=== PATIENT | male | born 1950 | race Caucasian/White ===

== ENCOUNTER → 2017-05-12 | Outpatient (CLI) | payer OTHER, MEDICARE ==
[~2017-05-12] MED LIST: AMLO-114 PO; HYDR25TA4 PO; LPR100 PO; MELO7.5T5 PO; MULT-506 PO
== END | disposition home or self-care (01) ==
LOC: C.CPL 12:11
PROVIDERS: ATTEND Orthopaedic Surgery
DX: Z01.810 Encounter for preprocedural cardiovascular examination (principal)

== ENCOUNTER 2017-10-31 10:24 | Inpatient (IN) | payer OTHER, MEDICARE ==
[2017-10-08 13:08] VITALS: BMI 39.0
--- NOTE | 2017-10-08 13:47 | PAT Medication Instructions ---
Service Date Oct 08, 2017. Current Home Medication List Amlodipine (Norvasc), 10 MG PO QAM Hydrochlorothiazide (Hctz), 25 MG PO QAM Meloxicam (Mobic), 15 MG PO QAM Metoprolol Tartrate (Metoprolol Tartrate), 100 MG PO BID Multivitamin (Multivitamin), 1 TAB PO QAM Medication Instructions For Your Scheduled Surgery - Hold the following medications 1 week prior to surgery per your surgeon's instructions: -Meloxicam (Mobic), 15 MG PO QAM - Hold the following medications the morning of surgery: Multivitamin (Multivitamin), 1 TAB PO QAM Hydrochlorothiazide (Hctz), 25 MG PO QAM - Take the following medications the morning of surgery with a sip of water: Metoprolol Tartrate (Metoprolol Tartrate), 100 MG PO BID Amlodipine (Norvasc), 10 MG PO QAM - Take the following medications as scheduled the night before surgery: Metoprolol Tartrate (Metoprolol Tartrate), 100 MG PO BID If you have any questions please call us at [phone] or [phone] or [phone]
--- NOTE | 2017-10-08 14:52 | DIAGNOSTIC IMAGING REPORT ---
CHEST 2 VIEWS ROUTINE CLINICAL HISTORY: Preoperative evaluation for COMPARISON STUDY: No previous studies for comparison. FINDINGS: Lung volumes are at the lower limits of normal. There is no pneumothorax or pleural effusion. There is no consolidation. Mild to moderate cardiomegaly is noted. IMPRESSION: 1. No acute cardiopulmonary findings. 2. Mild to moderate cardiomegaly. Electronically signed by: Michael Crandall M.D. 10/08/2017 2:51 PM Dictated Date/Time: 10/08/2017 2:50 PM
[2017-10-08 15:33] LABS: BASO % 0.6 %; BASO ABS # 0.05 K/uL (0-0.2); COMPLETE YES; EOS % 1.9 %; HEMATOCRIT 44.4 % (42-52); IG% 0.2 %; LYMPH ABS # 3.06 K/uL (1.2-3.4); MEAN CELL VOLUME 89.3 fL (80-100); MEAN CORPUSCULAR HEMOGLOBIN 31.8 pg (25-34); MEAN CORPUSCULAR HGB CONC 35.6 g/dl (32-36); MEAN PLATELET VOLUME 10.7 fL (7.4-10.4); MONO % 8.2 %; NEUT % 51.1 %; PLATELET COUNT 226 K/uL (130-400); RED BLOOD COUNT 4.97 M/uL (4.7-6.1); WHITE BLOOD COUNT 8.05 K/uL (4.8-10.8)
[2017-10-08 15:41] LABS: BUN/CREATININE RATIO 16.8 (10-20); CALCIUM 8.9 mg/dl (8.5-10.1); CREATININE 1.09 mg/dl (0.60-1.40); POTASSIUM 3.7 mmol/L (3.5-5.1)
[2017-10-08 15:43] LABS: URINE APPEARANCE CLEAR (CLEAR); URINE BILIRUBIN NEG (NEG); URINE COLOR YELLOW; URINE NITRITE NEG (NEG); URINE SPECIFIC GRAVITY 1.022 (1.000-1.030); UROBILINOGEN NEG (NEG); ZZUR CULT IF INDIC CLEAN CATCH NO
[2017-10-08 15:45] LABS: PROTHROMBIN TIME (PATIENT) 10.4 SECONDS (9.0-12.0)
[2017-10-08 15:56] LABS: MANUAL MICROSCOPIC REQUIRED? NO; REVIEW REQ? NO
[2017-10-08 17:21] LABS: ESTIMATED AVERAGE GLUCOSE 103 mg/dl; HA1C FLAG Normal (Normal)
--- NOTE | 2017-10-27 10:57 | History and Physical ---
History & Physical Date Oct 27, 2017. Chief Complaint Right knee pain History of Present Illness The patient is a 67 year old male with complaints of right knee pain. Patient previous had a knee arthroscopy with a PMM. He states since after the surgery he has had increased pain along the medial joint line. He has tried conservative therapy with little relief. He would like to proceed with a right knee unicompartment verse a right TKA. Past Medical/Surgical History PMHx: hypertension, sleep apnea, osteoarthritis, history of kidney cancer PSHx: 2 tumor removal from kidney, lower back surgery, neck surgery, Right carpal tunnel and cubital tunnel. Additional History Hepatic Disease: No Endocrine Disorder: No Kidney Disease: Yes Hypertension: Yes Heart Disease: No Bleeding Tendencies: No Infectious Diseases: No Allergies Coded Allergies: Penicillins (Verified Allergy, Unknown, RASH, 10/08/17) Home Medications Scheduled Amlodipine (Norvasc), 10 MG PO QAM Hydrochlorothiazide (Hctz), 25 MG PO QAM Meloxicam (Mobic), 15 MG PO QAM Metoprolol Tartrate (Metoprolol Tartrate), 100 MG PO BID Multivitamin (Multivitamin), 1 TAB PO QAM Physical Examination Skin: warm/dry, no rash Eyes: normal inspection, EOMI ENT: normal ENT inspection Head: normocephalic, atraumatic Neck: supple, no adenopathy Respiratory/Chest: lungs clear, normal breath sounds Cardiovascular: regular rate, rhythm, no murmur Abdomen / GI: normal bowel sounds, non tender Extremities: normal inspection, + pertinent finding (Medial joint line tenderness, decreased strength and ROM) Neurologic/Psych: no motor/sensory deficits, alert, oriented x 3 Diagnosis Primary osteoarthritis of the right knee Plan of Treatment Patient is scheduled for a right knee unicompartment verses right TKA. Patient has failed conservative treatment. He would like to proceed with scheduled surgery. Risks and benefits to surgery were discussed with the patient. He understands the risks and wishes to proceed. All questions were answered to his satisfaction. ASA 81mg BID will be for DVT Prophylaxis and he would like to go home with home health.
[~2017-10-31] VITALS: Ht 177.8 cm; Wt 122.7 kg
[2017-10-31] VITALS (8 sets, daily range): BP systolic 130–175; BP diastolic 66–83; PULSE 76–89; TEMP 36.4–36.9; O2SAT 93–98; Ht 177.8 cm; Wt 122.7 kg
[2017-10-31] MEDS: TRANEXAMIC ACID INJ 1,000 MG in SYRINGE 0 ML IV SCH ×2 (06:30→12:22)
[~2017-10-31 10:24] MED LIST changes: +ACETAMINOPHEN 500 MG TAB PO SCH; +ATROPINE SULFATE 0.1 MG/ML 5ML SYR IV PRN; +BUPIVACAINE 0.5 % 5 MG/1 ML PF 10ML VIAL ONE; +CLINDAMYCIN 600 MG/54 ML D5W 54 ML IV SCH; +CeleBREX 200 MG CAP PO SCH; +DEXAMETHASONE 4 MG TAB PO SCH; +EpHEDrine SULFATE INJ 50 MG/ML AMP IV PRN; +FAMOTIDINE 20 MG TAB PO SCH; +GABAPENTIN 300 MG CAP PO SCH; +HYDROmorphone INJ 2 MG/ML SYR/VIAL IV PRN; +LACTATED RINGER'S 1000ML 1,000 ML IV SCH; +LACTATED RINGER'S 1000ML 500 ML IV ONE; +LACTATED RINGER'S 1000ML IV SCH; +METOCLOPRAMIDE HCL 10 MG TAB PO SCH; +ONDANSETRON INJ 2 MG/ML 2 ML VIAL IV PRN; +OXYCODONE HCL 10 MG TABCR (OXYCONTIN) PO SCH; +PHENYLEPHRINE 100MCG/ML 5ML SYR IV PRN; +ROPIVACAINE 0.5% 5 MG/ML 30 ML VIAL ONE; +ROPIVACAINE 5MG/ML 30 ML 150 MG, BUPIVACAINE 0.5% MPF INJ 30 ML, EpINEphrine HCL INJ 0.... INFIL SCH
--- NOTE | 2017-10-31 11:13 | History & Physical Bridge Note ---
H&P Re-Evaluation Bridge Note: I have examined the patient, reviewed the History & Physical and in the interval since the performance of the History & Physical I have noted the following changes of clinical significance: No changes noted
[2017-10-31] MEDS ORDERED: MIDAZOLAM HCL 1 MG/ML 2ML VIAL ONE ×2 (11:35)
[2017-10-31] MEDS ORDERED: POVIDONE-IODINE OP SOLN 30 ML BTL ONE (12:01)
[2017-10-31] MEDS ORDERED: BACITRACIN 50000 UNIT VIAL ONE (12:01)
[2017-10-31] MEDS ORDERED: ORTHO JOINT ANESTHETIC ONE (12:01)
[2017-10-31] MEDS ORDERED: FENTANYL CITRATE INJ 50 MCG/1 ML 2 ML VIAL ONE (12:52)
[2017-10-31] MEDS ORDERED: PROPOFOL IV EMULSION 10 MG/ML 20 ML VIAL IV ONE ×5 (13:13→15:22)
[2017-10-31] MEDS ORDERED: EpHEDrine SULFATE 50MG/5ML SYR ONE (13:13)
--- NOTE | 2017-10-31 15:33 | [facility] Operative Report ---
Operative Report Operative Date Oct 31, 2017. Pre-Operative Diagnosis Primary osteoarthritis of the right knee of the medial compartment Post-Operative Diagnosis same as pre-operative Procedure(s) Performed Right unicompartmental knee arthroplasty Surgeon Dr. Guru Kennedy Silo Operator Surgeon(s) LEONARDO Gardner Estimated Blood Loss 20 Findings Complete chondral loss the weightbearing portion of the medial femoral condyle, there was 3 change in the lateral compartment, mild softening to the patella and trochlear cartilage Specimens Permanent Specimen A: Right knee bone and tissue Drains none Anesthesia spinal Complication(s) None Disposition Recovery Room / PACU Indications 67-year-old male with relatively rapid progression of medial compartment arthritis. He previously underwent a knee arthroscopy with partial medial meniscectomy. Postoperatively he had progressive joint space narrowing of medial side. At the time of arthroscopy the patellofemoral compartment had mild degenerative changes and the lateral compartment had no degenerative changes. He still had appropriate laxity to the MCL and could be corrected to neutral alignment. Failing conservative measures including cortisone injection viscoelastic injection and physical therapy she wishes to proceed with a unicompartmental knee arthroplasty versus a total knee arthroplasty. Description of Procedure Risks benefits and alternatives of surgery including but not limited to infection, DVT, pain, stiffness, need for surgery, damage to blood vessels, damage to nerves or risks of anesthesia were discussed with the patient and they wished to proceed. The patient was identified and the laterality was confirmed and marked. They received a preoperative antibiotic as well as a spinal anesthetic and an abductor canal block. A well-padded tourniquet was applied and then the limb was prepped and draped in standard manner with ChloraPrep. The limb was exsanguinated and the tourniquet was inflated. I made an anterior incision slightly medial to the midline. I sharply incised the skin then utilized Bovie electrocautery to achieve hemostasis. I made a medial parapatellar arthrotomy immobilized the patella laterally. I then excised the anterior horns of the medial meniscus as well as a portion of infrapatellar fat pad. I then inspected the patellofemoral joint. There was only mild degenerative change in the patellofemoral joint. I then inspected the lateral compartment. There was no degenerative change in the lateral compartment. I then pinned into place a patient-matched distal tibial cutting guide and made my tibial resection centering the lateral cut off of the border of the anterior cruciate ligament. I needed to take a little bit extra tibia after confirming tension with the 8 mm tension block. I used a 2 mm recut guide for this. I then pinned into place a patient-matched femoral cutting guide. The femoral cut was a little shallow as measured by the 8 mm sizing block site pinned into place the 2 mm recut guide and took an additional of 2 mm femur. I then pinned into place the 2 in 1 femoral cutting guide. I made my posterior and chamfer cuts. I then pinned into place the tibial trial. I then drilled for the posts. I then sequentially trialed to size the polyethylene until there was good soft tissue balancing and range of motion. All the trial components were removed. The deep tissues were anesthetized with an ortho mix solution. Then with Simplex HV with gentamicin cement, I cemented my definitive components. Definitive components, [employer] ZUK: Femur E Tibia 4 Poly 9 A betadine soak was performed. The arthrotomy was closed with interrupted #1 Vicryl suture subcutaneous tissue was closed with interrupted 2-0 Vicryl suture. The skin was closed with with Prineo maty. A Silverlon was placed. Sterile dressings were applied. All needle and sponge counts were correct at the end of the procedure patient was transferred to the PACU in stable condition without apparent complication. The PA-C was necessary for assistance with procedure for assistance in positioning, prepping, draping, retraction and closure. I attest to the content of the Intraoperative Record and any orders documented therein. Any exceptions are noted below.
[2017-10-31] MEDS ORDERED: PANTOprazole SOD 40 MG TAB PO PRN (16:00)
[2017-10-31] MEDS ORDERED: MAGNESIUM HYDROXIDE SUSP 30 ML UDC PO PRN (16:00)
[2017-10-31] MEDS ORDERED: ALUMINUM/MAGNESIUM/SIMETH (MAALOX MAX) 30 ML UDC PO PRN (16:00)
[2017-10-31] MEDS ORDERED: ONDANSETRON INJ 2 MG/ML 2 ML VIAL IV PRN (16:00)
[2017-10-31] MEDS ORDERED: MoRPHine SULFATE 2 MG/ML CARP IV PRN (16:00)
[2017-10-31] MEDS ORDERED: BISACODYL 10 MG SUPP PR PRN (16:00)
[2017-10-31] MEDS ORDERED: SOD PHOSPHATE/SOD BIPHOSPHATE ENEMA 132 ML BTL PR PRN (16:00)
--- NOTE | 2017-10-31 16:08 | Anesthesiology Progress Note ---
Anesthesia Post Op Note Date & Time Oct 31, 2017 at 16:08 Vital Signs Pain Intensity: 0 Vital Signs Past 12 Hours Date Time Temp Pulse Resp B/P (MAP) Pulse Ox O2 Delivery O2 Flow Rate FiO2 10/31/17 16:00 87 16 123/77 97 Oxymask 5 10/31/17 15:52 36.2 86 16 117/83 98 Oxymask 10 10/31/17 11:07 36.9 82 18 175/81 98 Room Air Notes Mental Status: alert / awake / arousable, participated in evaluation Pt Amnestic to Procedure: Yes Nausea / Vomiting: adequately controlled Pain: adequately controlled Airway Patency, RR, SpO2: stable & adequate BP & HR: stable & adequate Hydration State: stable & adequate Neuraxial Anesthesia: was administered, sensory block is resolving Anesthetic Complications: no major complications apparent
--- NOTE | 2017-10-31 16:09 | DIAGNOSTIC IMAGING REPORT ---
R KNEE 1 OR 2 VIEWS ROUTINE HISTORY: 67 years-old Male AP/LATERAL IN PACU RIGHT KNEE status post right knee hemiarthroplasty COMPARISON: None available TECHNIQUE: Portable AP lateral views of the right knee FINDINGS: Postoperative changes are noted compatible with recent medial compartment right knee hemiarthroplasty. Skin maty are seen along the volar skin surface with expected postsurgical swelling and deep tissue air about the knee. Moderate patellofemoral osteoarthritis without significant joint space narrowing within the lateral compartment. No postsurgical complication identified. IMPRESSION: Status post medial compartment right knee hemiarthroplasty without postprocedural complication identified. The above report was generated using voice recognition software. It may contain grammatical, syntax or spelling errors. Electronically signed by: Yrn Marin M.D. 10/31/2017 4:08 PM Dictated Date/Time: 10/31/2017 4:06 PM
[2017-10-31] MEDS: D5W AND 1/2NSS + 20MEQ KCL 1,000 ML IV SCH (17:46)
[2017-10-31] MEDS: ACETAMINOPHEN 500 MG TAB PO SCH ×2 (17:47→23:06)
[2017-10-31] MEDS: FERROUS GLUCONATE 324 MG TAB PO SCH (17:58)
[2017-10-31] MEDS: OXYCODONE HCL IR 5 MG TAB (IMMEDIATE RELEASE) PO PRN (18:18)
[2017-10-31] MEDS: SENNA 8.6 MG TAB PO SCH (21:06)
[2017-10-31] MEDS: ASPIRIN 81 MG ECTAB PO SCH (21:06)
[2017-10-31] MEDS: CeleBREX 200 MG CAP PO SCH (21:06)
[2017-10-31] MEDS: DOCUSATE SODIUM 100 MG CAP PO SCH (21:06)
[2017-10-31] MEDS: CLINDAMYCIN IV 600 MG in DEXTROSE 5% 50ML 50 ML IV SCH (21:06)
[2017-10-31] MEDS: METOPROLOL TARTRATE 100 MG TAB PO SCH (21:07)
[2017-11-01] MEDS: ZOLPIDEM TARTRATE 5 MG TAB PO PRN ×2 (01:31→21:31)
[2017-11-01 02:55] VITALS: BP 141/73; PULSE 79; TEMP 36.5; O2SAT 98
[2017-11-01] MEDS: D5W AND 1/2NSS + 20MEQ KCL 1,000 ML IV SCH ×2 (02:59→13:00)
[2017-11-01] MEDS: ACETAMINOPHEN 500 MG TAB PO SCH ×3 (05:53→21:33)
[2017-11-01] MEDS: CLINDAMYCIN IV 600 MG in DEXTROSE 5% 50ML 50 ML IV SCH (05:53)
[2017-11-01 06:05] LABS: HEMATOCRIT 39.9 % (42-52); MEAN CELL VOLUME 88.3 fL (80-100); MEAN CORPUSCULAR HEMOGLOBIN 31.2 pg (25-34); MEAN CORPUSCULAR HGB CONC 35.3 g/dl (32-36); MEAN PLATELET VOLUME 10.1 fL (7.4-10.4); PLATELET COUNT 184 K/uL (130-400); RED BLOOD COUNT 4.52 M/uL (4.7-6.1); WHITE BLOOD COUNT 15.03 K/uL (4.8-10.8)
[2017-11-01 06:37] LABS: BUN/CREATININE RATIO 17.2 (10-20); CREATININE 1.09 mg/dl (0.60-1.40); POTASSIUM 3.7 mmol/L (3.5-5.1)
--- NOTE | 2017-11-01 07:23 | Orthopedic Progress Note ---
Orthopedic Progress Note Date of Service Nov 01, 2017. Subjective Post OP Day: 1 Reports: feeling well, pain controlled w PO medications, Denies: complaints, chest pain, SOB, nausea / vomiting, light headedness, calf pain Objective calves soft nontender, N/V intact, capillary refill less than 2 sec., dressing C /D/I, A&O x3, toes mobile Date Time Temp Pulse Resp B/P (MAP) Pulse Ox O2 Delivery O2 Flow Rate FiO2 11/01/17 02:55 36.5 79 16 141/73 (95) 98 Room Air 10/31/17 23:20 Room Air 10/31/17 23:15 36.6 76 18 141/68 (92) 97 Room Air 10/31/17 21:00 89 153/66 (95) 10/31/17 19:24 36.5 82 16 138/76 (96) 93 Room Air 10/31/17 18:19 36.4 88 17 157/80 (105) 95 Room Air 10/31/17 17:23 36.6 84 17 158/76 (103) 96 Nasal Cannula 2.0 10/31/17 16:51 36.9 87 17 139/83 (101) 96 Nasal Cannula 2.0 10/31/17 16:20 36.8 85 16 130/73 (92) 93 Nasal Cannula 2.0 10/31/17 16:20 93 Nasal Cannula 2.0 10/31/17 16:20 Nasal Cannula 2.0 10/31/17 16:10 36.5 86 16 127/76 96 Nasal Cannula 2 10/31/17 16:00 87 16 123/77 97 Oxymask 5 10/31/17 15:52 36.2 86 16 117/83 98 Oxymask 10 10/31/17 11:07 36.9 82 18 175/81 98 Room Air Laboratory Results 24 Hours: Test 11/01/17 05:37 Hematocrit 39.9 % Hemoglobin 14.1 g/dL Prothromb Time International Ratio 1.0 Prothrombin Time 11.0 SECONDS Assessment & Plan Assessment: POD#1 Right Zuk unicompartment TKA Plan: Medical Management DVT - ASA PT/OT Discharge - Home with Home Health Inhouse Planning Pain Management: Celebrex, PO Tylenol, Oxy IR DVT Prophylaxis: TEDs, SCDs, ASA Discharge Planning Discharge Planning: home with home health Pain Management: Celebrex, PO Tylenol, Oxy IR DVT Prophylaxis: TEDs, ASA Therapy: Physical Therapy
[2017-11-01 07:36] VITALS: BP 128/75; PULSE 71; TEMP 36.5; O2SAT 95
[2017-11-01] MEDS: OXYCODONE HCL IR 5 MG TAB (IMMEDIATE RELEASE) PO PRN ×2 (08:40→16:39)
[2017-11-01] MEDS: FERROUS GLUCONATE 324 MG TAB PO SCH ×3 (08:41→18:05)
[2017-11-01] MEDS: MULTIVITAMIN TAB PO SCH (08:41)
[2017-11-01] MEDS: DOCUSATE SODIUM 100 MG CAP PO SCH ×2 (08:41→21:32)
[2017-11-01] MEDS: CeleBREX 200 MG CAP PO SCH ×2 (08:42→21:32)
[2017-11-01] MEDS: ASPIRIN 81 MG ECTAB PO SCH ×2 (08:43→21:32)
[2017-11-01] MEDS: METOPROLOL TARTRATE 100 MG TAB PO SCH ×2 (08:44→21:31)
[2017-11-01] MEDS: HYDROCHLOROTHIAZIDE 25 MG TAB PO SCH (08:44)
[2017-11-01] MEDS: AMLODIPINE BESYLATE 5 MG TAB PO SCH (08:45)
[2017-11-01] MEDS ORDERED: MULTIVITAMIN TAB PO SCH (09:00)
[2017-11-01 12:00] VITALS: BP 125/72; PULSE 72; TEMP 36.4; O2SAT 98
[2017-11-01 15:00] VITALS: BP 146/74; PULSE 65; TEMP 36.4; O2SAT 97
--- NOTE | 2017-11-01 20:32 | Discharge Instructions ---
Discharge Instructions Date of Service Nov 01, 2017. Admission Reason for Admission: Right Knee Osteoarthritis Discharge Discharge Diagnosis / Problem: S/P RIght knee Zuk uni-compartment partial total knee Discharge Goals Goal(s): Decrease discomfort, Improve function Activity Recommendations Activity Limitations: per Instructions/Follow-up section . Instructions / Follow-Up Instructions / Follow-Up ACTIVITY RECOMMENDATIONS: SELF CARE INSTRUCTIONS AFTER UNI-COMPARTMENT PARTIAL TOTAL KNEE REPLACEMENT A. You may need to continue a physical therapy program after discharge from the hospital. There are several options available to you. Your doctor will assist you in selecting the best one for you. 1. An out-patient facility 2 to 3 times a week for therapy or home therapy. 2. Continue working on all exercises taught to you in the hospital. Your goals should be to increase bending of your knee to 90 degrees and beyond and to fully straighten your knee. B. You may progress at your own pace from walking with a walker or crutches to a cane; then to no assistive devices. C. Make walking a part of your daily routine. Be up as much as comfortable with rest periods throughout the day. Rest with leg elevation is very important. Use the ice wrap frequently for the first 3-4 weeks. D. There are no restrictions on activities. You may ride in a car, shop, participate in bottom finisher and all social activities. E. Wear the long elastic stockings (RAQUEL hose) 20 hours a day for 2 weeks after surgery. They can be removed several times a day for laundering and for a bath. F. You may shower, no tub baths until cleared by your doctor. SPECIAL CARE INSTRUCTIONS: VERY IMPORTANT TO READ AND REVIEW A. There are a few signs you need to watch for after you are home. Call [facility] [place] if you notice any of the followin. Increased severe knee pain. Some pain is expected especially when you exercise. 2. Increased swelling in your leg or knee; pain or swelling of the calf muscle in either lower leg. 3. Any fluid drainage from the incision. 4. Shortness of breath or chest pain. B. Please call [facility] at if you have any concerns or questions about your operation or recovery. The doctor or his nurse will return your call promptly. C. You must take antibiotics before dental work, bladder, bowel or other surgery. Your doctor will provide you with a permanent care to carry describing this precaution. IMPORTANT: * REMEMBER TO TAKE ASPIRIN, 81 MG, TWICE DAILY FOR 4 WEEKS UNLESS OTHERWISE DIRECTED. THIS IS YOUR BLOOD THINNER. * CALL IF INCREASED PAIN, REDNESS, DRAINAGE OR FEVER GREATER THAT 101. * WEAR RAQUEL HOSE 20 HOURS PER DAY FOR 2 WEEKS. * YOU MAY HAVE A LARGE BAND-AID LIKE DRESSING (SILVERON). THIS WILL REMAIN ON YOUR INCISION FOR 7 DAYS, THEN CAN BE REMOVED. IF INCISION IS LEAKING THROUGH DRESSING, CALL THE OFFICE . FOLLOW UP VISIT: If appointment is not already scheduled: Please call [facility] [place] to make a follow-up appointment with Dr. Kennedy or his PA for 2 weeks after your surgery at . Current Hospital Diet Patient's current hospital diet: Regular Diet Discharge Diet Recommended Diet: Regular Diet Procedures Procedures Performed: Right unicompartmental knee arthroplasty Pending Studies Studies pending at discharge: no Laboratory Results Hemoglobin A1c Test 10/08/17 14:05 Range/Units Estimated Average Glucose 103 mg/dl Hemoglobin A1c 5.2 4.5-5.6 % Medical Emergencies . Who to Call and When: Medical Emergencies: If at any time you feel your situation is an emergency, please call 911 immediately. . Non-Emergent Contact Non-Emergency issues call your: Surgeon Call Non-Emergent contact if: temperature is above 101.5, your pain is worsening, wound has increased drainage, wound has increased redness . "Provider Documentation" section prepared by Walt France. . VTE Core Measure Inpt VTE Proph given/why not?: Other Anticoagulation (ASA) [place] Drug Monitoring Program Search Results: patient reviewed within database, no issues identified
[2017-11-01 21:20] VITALS: BP 149/74; PULSE 64
[2017-11-01] MEDS: SENNA 8.6 MG TAB PO SCH (22:10)
[2017-11-01 23:00] VITALS: BP 143/72; PULSE 65; TEMP 36.6; O2SAT 96
[2017-11-02] MEDS: ACETAMINOPHEN 500 MG TAB PO SCH (05:18)
--- NOTE | 2017-11-02 06:55 | Orthopedic Progress Note ---
Orthopedic Progress Note Date of Service Nov 02, 2017. Subjective Post OP Day: 2 Reports: feeling well, pain controlled w PO medications, Denies: complaints, chest pain, SOB, nausea / vomiting, light headedness, calf pain Objective calves soft nontender, N/V intact, capillary refill less than 2 sec., dressing C /D/I, A&O x3, toes mobile Window of silverlon shows mild bloody tinge Date Time Temp Pulse Resp B/P (MAP) Pulse Ox O2 Delivery O2 Flow Rate FiO2 11/01/17 23:15 Room Air 11/01/17 23:00 36.6 65 18 143/72 (95) 96 Room Air 11/01/17 21:20 64 149/74 (99) 11/01/17 15:22 Room Air 11/01/17 15:00 36.4 65 18 146/74 (98) 97 Room Air 11/01/17 12:00 36.4 72 16 125/72 (89) 98 Room Air 11/01/17 09:25 Room Air 11/01/17 07:36 36.5 71 16 128/75 (92) 95 Room Air Assessment & Plan Assessment: POD#2 Right Zuk unicompartment TKA Plan: Medical Management DVT - ASA PT/OT Discharge - Home with Home Health Inhouse Planning Pain Management: Celebrex, PO Tylenol, Oxy IR DVT Prophylaxis: TEDs, SCDs, ASA Discharge Planning Discharge Planning: home with home health Pain Management: Celebrex, PO Tylenol, Oxy IR DVT Prophylaxis: TEDs, ASA Therapy: Physical Therapy
[2017-11-02] MEDS ORDERED: ASPEC81 PO (06:57)
[2017-11-02] MEDS ORDERED: RXC5 PO (06:57)
[2017-11-02] MEDS ORDERED: CLB200 PO (06:57)
[2017-11-02] MEDS ORDERED: ONDA8TAB6 PO (06:57)
[2017-11-02] MEDS ORDERED: ACET-24 PO (06:57)
[2017-11-02 07:42] VITALS: BP 154/83; PULSE 60; TEMP 36.5; O2SAT 96
[2017-11-02] MEDS: FERROUS GLUCONATE 324 MG TAB PO SCH (08:58)
[2017-11-02] MEDS: HYDROCHLOROTHIAZIDE 25 MG TAB PO SCH (08:58)
[2017-11-02] MEDS: MULTIVITAMIN TAB PO SCH (08:58)
[2017-11-02] MEDS: AMLODIPINE BESYLATE 5 MG TAB PO SCH (08:59)
[2017-11-02] MEDS: OXYCODONE HCL IR 5 MG TAB (IMMEDIATE RELEASE) PO PRN (09:04)
[2017-11-02] MEDS: DOCUSATE SODIUM 100 MG CAP PO SCH (10:24)
[2017-11-02] MEDS: METOPROLOL TARTRATE 100 MG TAB PO SCH (10:24)
[2017-11-02] MEDS: CeleBREX 200 MG CAP PO SCH (10:24)
[2017-11-02] MEDS: ASPIRIN 81 MG ECTAB PO SCH (10:24)
--- NOTE | 2017-11-04 09:09 | Discharge Summary ---
Orthopedic Discharge Summary Admission Date/Reason Oct 31, 2017 at 11:10 Right Knee Osteoarthritis. Discharge Date/Disposition Nov 02, 2017 Home with services Diagnosis Principal Diagnosis: S/P right unicompartment partial total knee arthroplasty Medication Reconciliation as per discharge instructions Admission Physical Exam As per Admitting History & Physical. Hospital Course POD#1 patient was feeling well with no complaints. His dressing was clean, dry and intact. He states he had minimal pain with walking. He was able to walk up and down the hallway with no pain. We were awaiting authorization for home health services. POD#2 patient was feeling well with no complaints. His dressing was clean, dry and intact. He states he had minimal pain with walking. He was doing well with PT. He will be discharged today home with home health services. He will follow up in the office in 2 weeks for new x-rays and staple removal. Discharge Instructions Please refer to the electronic Patient Visit Report (Discharge Instructions) for additional information.
== END 2017-11-02 11:07 | disposition home health service (06) | DRG 470 ==
LOC: C.ACU 10:24 → C.3E 11:10 → ENRESERV 16:01
PROVIDERS: ADMIT Orthopaedic Surgery; ATTEND Orthopaedic Surgery
PROC: 0SRV0J9 Replacement of Right Knee Joint, Tibial Surface with Synthetic Substitute, Cemented, Open Approach (ICD-10-PCS; principal; 2017-10-31 12:45)
PROC: 0SRT0J9 Replacement of Right Knee Joint, Femoral Surface with Synthetic Substitute, Cemented, Open Approach (ICD-10-PCS; principal; 2017-10-31 12:45)
DX: M17.11 Unilateral primary osteoarthritis, right knee (principal); Z79.899 Other long term (current) drug therapy; Z88.0 Allergy status to penicillin